=== PATIENT | female | born 1985 | race African-American/Black ===

== ENCOUNTER 2018-06-08 19:14 | Emergency (ER) | payer MEDICAID, OTHER ==
[~2018-06-08] VITALS: Ht 160 cm; Wt 60.5 kg
[2018-06-08] MEDS ORDERED: LIDOCAINE HCL 4% CREAM 76GM TUBE TP ONE (20:45)
[2018-06-08] MEDS ORDERED: ACETAMINOPHEN 325MG TABLET PO ONE (22:15)
[2018-06-08 22:26] VITALS: BP 120/70
== END 2018-06-08 22:33 | disposition home or self-care (01) ==
LOC: ER 19:33
DX: O99.612 Diseases of the digestive system complicating pregnancy, second trimester (principal); K08.9 Disorder of teeth and supporting structures, unspecified; Z3A.21 21 weeks gestation of pregnancy
CPT/HCPCS: 99283